=== PATIENT | female | born 1990 | race Caucasian/White ===

== ENCOUNTER 2018-07-31 02:29 | Emergency (ER) | payer OTHER ==
[2018-07-31 04:04] LABS: URINE BLOOD (Dip) POC Trace-intact (NEGATIVE); URINE GLUCOSE (Dip) POC Negative (NEGATIVE); URINE KETONES (Dip) POC Negative (NEGATIVE); URINE LEUKOCYTE EST (Dip) POC Trace (NEGATIVE); URINE NITRITE (Dip) POC Negative (NEGATIVE); URINE TOTAL PROTEIN POC Negative (NEGATIVE)
[2018-07-31] MEDS: ONDANSETRON 4 MG INJ IV (04:14)
[2018-07-31] MEDS: KETOROLAC 30 MG INJ IV (04:14)
[2018-07-31] MEDS: DIPHENHYDRAMINE 50 MG INJ IV (04:14)
[2018-07-31] MEDS: SOD CHLORIDE 0.9% 1,000 ML IV (04:15)
[2018-08-01 00:04] LABS: URINE BLOOD (Dip) POC Trace-intact (NEGATIVE); URINE GLUCOSE (Dip) POC Negative (NEGATIVE); URINE KETONES (Dip) POC Negative (NEGATIVE); URINE LEUKOCYTE EST (Dip) POC Trace (NEGATIVE); URINE NITRITE (Dip) POC Negative (NEGATIVE); URINE TOTAL PROTEIN POC Negative (NEGATIVE)
== END 2018-07-31 05:48 | disposition home or self-care (01) ==
LOC: FTE 02:29
DX: R51 Headache (principal)
CPT/HCPCS: 70450; 81003; 81025; 96374; 96375; 99285-25